=== PATIENT | female | born 1995 | race Caucasian/White ===

== ENCOUNTER 2018-09-01 11:49 | Inpatient (IN) | payer OTHER ==
[~2018-09-01] VITALS: Ht 160 cm; Wt 65.9 kg
[2018-09-01] MEDS ORDERED: IBUPROFEN 600 MG TAB PO PRN (13:30)
[2018-09-01] MEDS ORDERED: MISOPROSTOL 200 MCG TAB PR PRN (13:30)
[2018-09-01] MEDS ORDERED: OXYTOCIN 30 UNITS/LR 500 ML IV PRN (13:30)
[2018-09-01] MEDS ORDERED: OXYTOCIN 30 UNITS/LR 500 ML IV SCH ×2 (13:30)
[2018-09-01] MEDS ORDERED: METHYLERGONOVINE 0.2 MG INJ IM PRN (13:30)
[2018-09-01] MEDS ORDERED: LIDOCAINE 1% (MPF) 30 ML INJ INJ PRN (13:30)
[2018-09-01] MEDS ORDERED: CARBOPROST 250 MCG INJ IM PRN (13:30)
[2018-09-01 13:32] VITALS: Ht 160 cm; Wt 65.9 kg
[2018-09-01 14:02] VITALS: BP 119/63; PULSE 80; RESP 18
--- NOTE | 2018-09-01 14:50 | NUR ---
HUGO NOTE: CONSULT - DEMISE This comic book writer discussed the pt with Gurpreet CACERES in L&D. Pt will be induced. HUGO met with the pt, the FoB: Satya Braxton Tyler: 04/11[birth year]1987 , and the pt's sister at bedside. Pt was AA&Ox4. She was calm. Affect was congruent to situation. Pt's sister remained at bedside per pt's request. All parties were receptive. Pt stated she is G-1 and P-1. Stated the was unplanned and she started PNC at GA of 12 weeks. Pt stated she went for her OB visit on 08/26 and there was no heartbeat. She stated today's hospital visit was pre-scheduled and they knew what to anticipate. Pt stated they have had time to process their loss and have discussed their plans for the baby which is as follows: They would like to see and hold the baby after . They would like a Senior Electronics Design Engineer to be contacted AFTER they deliver the baby. They do not wish to involve any mortuary due to the GA of baby at 16 weeks. Pt stated she lives with her mother at the address on the face sheet. 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 FoB works as a Hold Worker. He lives in the city of [place] close to the pt's residence. Pt and FoB coping adequately at this time. SW provided supportive intervention and will remain available. Addendum: 09/01/18 at 1502 by BALDEV JAMES LCSW Amended: Links added.
[2018-09-01] MEDS ORDERED: MISOPROSTOL 200 MCG TAB PO SCH ×2 (15:00→17:00)
[2018-09-01] MEDS ORDERED: MISOPROSTOL 100 MCG TAB PO SCH (15:30)
[2018-09-01] MEDS: LACTATED RINGER'S 1,000 ML IV SCH ×2 (16:15→22:19)
[2018-09-01] MEDS ORDERED: PNV11TAB PO (17:03)
[2018-09-01] MEDS: MISOPROSTOL 50 MCG CAPSULE PO SCH (20:40)
[2018-09-02] MEDS: MISOPROSTOL 50 MCG CAPSULE PO SCH ×2 (02:29→06:26)
[2018-09-02] MEDS: LACTATED RINGER'S 1,000 ML IV SCH ×3 (06:02→22:27)
[2018-09-02] MEDS ORDERED: MISOPROSTOL 50 MCG CAPSULE PO SCH (10:30)
[2018-09-02] MEDS ORDERED: MISOPROSTOL 100 MCG TAB PO SCH (11:21)
[2018-09-02] MEDS: OXYTOCIN 20 UNITS in LACTATED RINGER'S 1,000 ML IV* SCH (17:10)
[2018-09-02] MEDS ORDERED: MISOPROSTOL 100 MCG TAB PO ONE (18:00)
[2018-09-02] MEDS ORDERED: MISOPROSTOL 200 MCG TAB PO ONE (18:00)
[2018-09-02] MEDS: BUTORPHANOL 2 MG INJ IV PRN ×2 (18:22→20:21)
[2018-09-03] MEDS: LACTATED RINGER'S 1,000 ML IV SCH ×2 (01:32→06:03)
--- NOTE | 2018-09-03 01:43 | PREAC ---
Date/Time of Note Date/Time of Note DATE: 09/03/18 TIME: 01:41 Anesthesia Eval and Record Evaluation Time Pre-Procedure Interview DATE: 09/03/18 TIME: 01:41 Age 23 Sex female NPO: 8 hrs Preoperative diagnosis demise (induction of labor) Planned procedure labor epidural Past Medical History Past Medical History: Includes : : (1), Para: (0), Gestational age: (17.5) Surgery & Anesthesia Issues No known issue Meds Anticoagulation: No Beta Melvin within 24 hr: No Reason Beta Melvin not given: Pt. not on B-Melvin Reported Medications [id number] ( 19) 1 Each Tablet, 1 TAB PO DAILY, TAB 09/01/18 Current Medications Lactated Ringer's 1,000 ml @ 125 mls/hr Q8H IV Last administered on 09/03/18at 01:32; Admin Dose 125 MLS/HR; Start 09/01/18 at 13:23 Butorphanol Tartrate (Stadol) 2 mg Q2H PRN IV PAIN Last administered on 09/02/18at 20:21; Admin Dose 2 MG; Start 09/01/18 at 13:30 Lidocaine (Xylocaine 1% (Mpf)) 30 ml ONCE PRN INJ EPISIOTOMY; Start 09/01/18 at 13:30 Oxytocin/Lactated Ringer's 500 ml @ 500 mls/hr ONCE POST IV ; Start 09/01/18 at 13:30 Oxytocin/Lactated Ringer's 500 ml @ 125 mls/hr POST IV ; Start 09/01/18 at 13:30 Ibuprofen (Motrin) 600 mg ONCE PRN PO PAIN LEVEL 1-5; Start 09/01/18 at 13:30 Oxytocin/Lactated Ringer's 500 ml @ 0 mls/hr ONCE PRN IV VAGINAL BLEEDING; Start 09/01/18 at 13:30 Methylergonovine Maleate (Methergine) 0.2 mg ONCE PRN IM VAGINAL BLEEDING; Start 09/01/18 at 13:30 Carboprost Tromethamine (Hemabate) 250 mcg ONCE PRN IM VAGINAL BLEEDING; Start 09/01/18 at 13:30 Misoprostol (Cytotec) 1,000 mcg ONCE PRN SD VAGINAL BLEEDING; Start 09/01/18 at 13:30 Oxytocin 20 units/ Lactated Ringer's 1,002 ml @ 125 mls/hr Q8H1M IV* Last administered on 09/02/18at 17:10; Admin Dose 125 MLS/HR; Start 09/02/18 at 17:00 Meds reviewed: Yes Allergies Coded Allergies: No Known Allergy (Unverified , 09/01/18) Allergies Reviewed: Yes Labs/Studies Labs Reviewed: Reviewed by anesthesiologist Result Diagram: 09/01/18 1434 09/01/18 1434 test: N/A Pre-procedure Exam Last vitals Vital Signs Date Temp Pulse Resp B/P (MAP) Pulse Ox O2 O2 Flow FiO2 Time Delivery Rate 09/01/18 98.2 80 18 119/63 Room Air 14:02 (81) Airway: Adequate mouth opening, Adequate thyromental dist Mallampati: Mallampati II Teeth: Normal Lung: Normal Heart: Normal ASA Physical Status ASA physical status: 2 Emergency: None Planned Anesthetic Neuraxial: Epidural Planned Pain Management Epidural Pre-operative Attestations Prior to commencing anesthesia and surgery, the patient was re-evaluated, there was verification of: *The patient's identity *The results of appropriate recent lab work and preoperative vital signs *The above evaluation not changing prior to induction *Anesthetic plan, risk benefits, alternative and complications discussed with patient/family; questions answered; patient/family understands, accepts and wishes to proceed. JUDITH CHEW MD Sep 03, 2018 01:43
[2018-09-03] MEDS ORDERED: FENTAnyl 2MCG/ML-ROPIV 0.2% 100 ML ONE (01:49)
[2018-09-03] MEDS ORDERED: NALOXONE (0.4 MG/ML) INJ IV PRN (02:00)
[2018-09-03] MEDS ORDERED: ONDANSETRON 4 MG INJ IV PRN (02:00)
[2018-09-03] MEDS ORDERED: FENTAnyl 2MCG/ML-ROPIV 0.2% 100 ML BAG EPI SCH (02:00)
[2018-09-03] MEDS ORDERED: DIPHENHYDRAMINE 50 MG INJ IV PRN (02:00)
[2018-09-03] MEDS ORDERED: MISOPROSTOL 200 MCG TAB VAG SCH (06:00)
[2018-09-03] MEDS ORDERED: MISOPROSTOL 25 MCG CAPSULE VAG SCH (06:00)
[2018-09-03] MEDS: OXYTOCIN 20 UNITS in LACTATED RINGER'S 1,000 ML IV* SCH ×2 (06:20→11:54)
[2018-09-03] MEDS ORDERED: CEFAZOLIN 1 GM INJ ONE (07:00)
[2018-09-03] MEDS ORDERED: OXYTOCIN 30 UNITS/LR 500 ML BAG IV ONE (07:00)
--- NOTE | 2018-09-03 10:35 | PAC ---
Date/Time of Note Date/Time of Note DATE: 09/03/18 TIME: 10:34 Post-Anesthesia Notes Post-Anesthesia Note Last documented vital signs Vital Signs Date Temp Pulse Resp B/P (MAP) Pulse Ox O2 O2 Flow FiO2 Time Delivery Rate 09/01/18 98.2 80 18 119/63 Room Air 14:02 (81) Activity: WNL Respiratory function: WNL Cardiovascular function: WNL Mental status: Baseline Pain reasonably controlled: Yes Hydration appropriate: Yes Nausea/Vomiting absent: Yes Comments BP: 112/64 HR: 82 T: 98 SaO2: 100% RR: 16 JUDITH CHEW MD Sep 03, 2018 10:35
--- NOTE | 2018-09-03 13:02 | PREAC ---
Date/Time of Note Date/Time of Note DATE: 09/03/18 TIME: 13:01 Anesthesia Eval and Record Evaluation Time Pre-Procedure Interview DATE: 09/03/18 TIME: 13:01 Age 23 Sex female NPO: 8 hrs Preoperative diagnosis incomplete delivery Planned procedure D&C Past Medical History Past Medical History: Includes : : (1), Gestational age: (14-16) Surgery & Anesthesia Issues No known issue Meds Anticoagulation: No Beta Melvin within 24 hr: No Reason Beta Melvin not given: Pt. not on B-Melvin Reported Medications [id number] ( 19) 1 Each Tablet, 1 TAB PO DAILY, TAB 09/01/18 Current Medications Lactated Ringer's 1,000 ml @ 125 mls/hr Q8H IV Last administered on 09/03/18at 06:03; Admin Dose 125 MLS/HR; Start 09/01/18 at 13:23 Butorphanol Tartrate (Stadol) 2 mg Q2H PRN IV PAIN Last administered on 09/02/18at 20:21; Admin Dose 2 MG; Start 09/01/18 at 13:30 Lidocaine (Xylocaine 1% (Mpf)) 30 ml ONCE PRN INJ EPISIOTOMY; Start 09/01/18 at 13:30 Oxytocin/Lactated Ringer's 500 ml @ 500 mls/hr ONCE POST IV ; Start 09/01/18 at 13:30 Oxytocin/Lactated Ringer's 500 ml @ 125 mls/hr POST IV ; Start 09/01/18 at 13:30 Ibuprofen (Motrin) 600 mg ONCE PRN PO PAIN LEVEL 1-5; Start 09/01/18 at 13:30 Oxytocin/Lactated Ringer's 500 ml @ 0 mls/hr ONCE PRN IV VAGINAL BLEEDING; St art 09/01/18 at 13:30 Methylergonovine Maleate (Methergine) 0.2 mg ONCE PRN IM VAGINAL BLEEDING; Star t 09/01/18 at 13:30 Carboprost Tromethamine (Hemabate) 250 mcg ONCE PRN IM VAGINAL BLEEDING; Start 09/01/18 at 13:30 Misoprostol (Cytotec) 1,000 mcg ONCE PRN MS VAGINAL BLEEDING; Start 09/01/18 at 13:30 Oxytocin 20 units/ Lactated Ringer's 1,002 ml @ 125 mls/hr Q8H1M IV* Last administered on 09/03/18at 11:54; Admin Dose 125 MLS/HR; Start 09/02/18 at 17:00 Naloxone HCl (Narcan) 0.1 mg Q2M PRN IV DECREASED REPIRATORY RATE; Start 09/03/18 at 02:00; Stop 09/04/18 at 01:59 Diphenhydramine HCl (Benadryl) 25 mg Q6H PRN IV ITCHING; Start 09/03/18 at 02:00; Stop 09/04/18 at 01:59 Ondansetron HCl (Zofran Inj) 4 mg Q6H PRN IV NAUSEA AND/OR VOMITING; Start 09/03/18 at 02:00; Stop 09/04/18 at 01:59 Fentanyl/ Ropivacaine 100 ml EPIDURAL INFUSION EPI Last administered on 09/03/18at 09:40; Admin Dose 100 ML; Start 09/03/18 at 02:00 Misoprostol (Cytotec) 200 mcg Q6 VAG Last administered on 09/03/18at 06:13; Admin Dose 200 MCG; Start 09/03/18 at 06:00; Stop 09/04/18 at 00:01 Meds reviewed: Yes Allergies Coded Allergies: No Known Allergy (Unverified , 09/01/18) Allergies Reviewed: Yes Labs/Studies Labs Reviewed: Reviewed by anesthesiologist Result Diagram: 09/01/18 1434 09/01/18 1434 test: Positive Studies: ECG (n/a), CXR (n/a) Pre-procedure Exam Last vitals Vital Signs Date Temp Pulse Resp B/P (MAP) Pulse Ox O2 O2 Flow FiO2 Time Delivery Rate 09/01/18 98.2 80 18 119/63 Room Air 14:02 (81) Airway: Adequate mouth opening Mallampati: Mallampati I Teeth: Normal Lung: Normal Heart: Normal ASA Physical Status ASA physical status: 2 Emergency: None Planned Anesthetic General/MAC: MAC Neuraxial: Epidural Planned Pain Management Epidural Pre-operative Attestations Prior to commencing anesthesia and surgery, the patient was re-evaluated, there was verification of: *The patient's identity *The results of appropriate recent lab work and preoperative vital signs *The above evaluation not changing prior to induction *Anesthetic plan, risk benefits, alternative and complications discussed with patient/family; questions answered; patient/family understands, accepts and wishes to proceed. SARITA ABDI MD Sep 03, 2018 13:02
[2018-09-03] MEDS ORDERED: MIDAZOLAM 1 MG/ML 2 ML INJ ONE (13:24)
--- NOTE | 2018-09-03 13:49 | SIPON ---
Date/Time of Note Date/Time of Note DATE: 09/03/18 TIME: 13:47 Operative Report Preoperative Diagnosis INCOMPLETE Postoperative Diagnosis INCOMPLETE Operation/Procedure Performed EVACUATION OF PLACENTA SUCTION CURETTAGE Surgeon see signature line players assistant SCRB TECH Anesthesia: epidural Estimated blood loss: 10 - 50 ml's Transfusion Required none Specimen FETUS PLACENTA Grafts/Implants none Complications none LESLIE MARTIN MD Sep 03, 2018 13:49
[2018-09-03] MEDS ORDERED: ACETAMINOPHEN 325 MG TAB PO PRN (14:00)
--- NOTE | 2018-09-03 14:40 | NUR ---
HUGO NOTE: REQUEST FOR A LOCAL SUPERINTENDENT Received a call from Zita CACERES. Pt delivered the fetus and is requesting a director career services. Called [facility] [phone] and spoke with Monica. She took the # to L&D and will call back with the ETA. Addendum: 09/03/18 at 1549 by BALDEV JAMES LCSW Followed up with Monica at [facility]. Father Radha will be at [facility] by 16:30. This tag writer notified Gloria in L&D.
--- NOTE | 2018-09-03 16:25 | PAC ---
Date/Time of Note Date/Time of Note DATE: 09/03/18 TIME: 16:25 Post-Anesthesia Notes Post-Anesthesia Note Last documented vital signs Vital Signs Date Temp Pulse Resp B/P (MAP) Pulse Ox O2 O2 Flow FiO2 Time Delivery Rate 09/01/18 98.2 80 18 119/63 100 Room Air 14:02 (81) Activity: WNL Respiratory function: WNL Cardiovascular function: WNL Mental status: Baseline Pain reasonably controlled: Yes Hydration appropriate: Yes Nausea/Vomiting absent: No SARITA ABDI MD Sep 03, 2018 16:25
--- NOTE | 2018-09-03 19:32 | NUR ---
this 23 y/o pt discharged to home in stable condition via wheelchair to private vehical accompanied by significant other with belongings. Discharge instructions given, grief process discussed,pt and s.o. verbalize understanding.
--- NOTE | 2018-09-04 18:10 | PREOPHP ---
DATE OF ADMISSION: 09/01/2018 HISTORY OF PRESENT ILLNESS: This is a 23-year-old lady, 1 para 0. Her last normal menstrual period was 05/02/2018. She is about 17 weeks and 3/7 on admission, admitted to the labor and delivery area for induction and delivery. This patient was seen in the office on 08/26/2018 and the heart tone was not present, so the ultrasound demise. So the plans were explained to the patient and to her partner, asked to give medication orally and if no response, we plan to give vaginal suppository as well and for possible dilatation and curettage if the placenta does not come out after the fetus was delivered. The plans were explained to both of them and both understood everything totally. The risks, benefits, and alternatives were discussed with them as well. PAST PERSONAL HISTORY: No history of diabetes, TB, asthma. ALLERGIES: NO ALLERGIES. SOCIAL HISTORY: The patient does not smoke. She does not drink. MEDICATIONS: She does not take any drugs except her iron and vitamins. GYNECOLOGIC HISTORY: She had menarche at the age of 16, every 28 days interval, 3 to 4 days duration, and moderate in amount. FAMILY HISTORY: Sister has diabetes. Mother has hypertension and congestive heart disease. REVIEW OF SYSTEMS: CARDIOVASCULAR: No chest pains. RESPIRATORY: No cough. GASTROINTESTINAL: No diarrhea, no vomiting. GENITOURINARY: No dysuria. PHYSICAL EXAMINATION: GENERAL: Reveals a conscious, coherent lady, in no acute distress. VITAL SIGNS: Her blood pressure 120/80, pulse rate 80 per minute, respirations 16 per minute. BREASTS, HEART AND LUNGS: Within normal limits. ABDOMEN: Soft. Uterus about 16 weeks size. heart tones were not present. PELVIC: Revealed the cervix to be closed, station 0, in breech presentation, with the bag of water intact. EXTREMITIES: No pedal edema. ADMITTING DIAGNOSIS: 16 to 17 weeks intrauterine with demise. Cytotec was ordered for 50 mcg every 4 hours for 6 doses. The patient received a total of Cytotec 2200 mcg orally and then the cervix was still closed, so she was given Cytotec 200 mg vaginal tablets. This was on 09/02/2018. She was given a whole day of the oral Cytotec and she received epidural at 2 a.m. on 09/03/2018 and then in the morning of on 09/03/2018, she was given Cytotec 200 mg vaginal suppository. On 09/03/2018 at 12:48 pm, she spontaneously delivered a baby boy with hydrops. This specimen was sent to pathology. Then, the placenta was noted to be still inside the uterus and she was having moderate vaginal bleeding, so Pitocin was given and she was scheduled to have evacuation of the placenta and possible curettage. The procedures were explained to the patient and she understood everything totally. The risks, benefits, and alternatives were discussed with her as well. Dictated By: LESLIE LINO/ALANA Conf#: [id number] DID#: [id number] MTDYennifer
--- NOTE | 2018-09-04 21:26 | OPR ---
DATE OF OPERATION: 09/03/2018 PREOPERATIVE DIAGNOSIS: Incomplete . POSTOPERATIVE DIAGNOSIS: Incomplete . OPERATION PERFORMED: Evacuation of the placenta under epidural anesthesia and dilatation and curetta ge. SURGEON: Shelby Montero MD TECHNICAL PHOTOGRAPHER: radiation therapy technician. ANESTHESIA: Epidural. OPERATIVE TECHNIQUE: Under epidural anesthesia, the patient was prepped and draped in the usual [facility] ion for vaginal surgery. Pelvic exam under anesthesia revealed the cervix to be 3 cm dilated and wit h the placenta noted inside the uterus. The uterus was about 16 weeks size and moderate to heavy vag inal bleeding noted. The heavyweight vaginal retractor was put in place and the anterior lip of the cervix was grasped with an Allis clamp. The ring forceps was inserted inside the uterine cavity and grasped the placenta followed by curettage. Suction curettage was done and good amount of tissue was obtained. Then gentle sharp curettage was done. The uterus was intact during and after the procedu re. The patient tolerated the procedure well. Estimated blood loss was minimal. Vital signs were s table during and after the procedure. Dictated By: SHELBY LINO/ALANA Conf#: [id number] DID#: [id number]
== END 2018-09-03 19:15 | disposition home or self-care (01) | DRG 779 ==
LOC: L-D 11:49
PROVIDERS: ADMIT Obstetrics & Gynecology; ATTEND Obstetrics & Gynecology
PROC: 10D17Z9 Manual Extraction of Products of Conception, Retained, Via Natural or Artificial Opening (ICD-10-PCS; principal; 2018-09-03)
PROC: 3E0P7VZ Introduction of Hormone into Female Reproductive, Via Natural or Artificial Opening (ICD-10-PCS; 2018-09-03)
DX: O03.4 Incomplete spontaneous abortion without complication (principal)
CPT/HCPCS: 62319; 80053; 85025; 85610; 85730; 86592; 86850; 86900; 86901; 87086; 87340; 88307; 88309; J0595; J0690; J2250; J2590; J3010; J7120